=== PATIENT | female | born 1995 | race Caucasian/White ===

== ENCOUNTER 2017-10-27 13:36 | Inpatient (IN) | payer MEDICAID ==
[2017-10-27 14:43] LABS: RUPTURE FETAL MEMBRANES NEGATIVE (NEGATIVE)
[2017-10-27] MEDS ORDERED: LIDOCAINE 1% (MPF) 30 ML INJ INJ ×2 (16:00)
[2017-10-27] MEDS ORDERED: CARBOPROST 250 MCG INJ IM ×2 (16:00)
[2017-10-27] MEDS ORDERED: METHYLERGONOVINE 0.2 MG INJ IM ×2 (16:00)
[2017-10-27] MEDS ORDERED: BUTORPHANOL 2 MG INJ IV ×3 (16:00)
[2017-10-27] MEDS ORDERED: OXYTOCIN 30 UNITS/LR 500 ML IV ×5 (16:00)
[2017-10-27] MEDS ORDERED: MISOPROSTOL 200 MCG TAB PR ×2 (16:00)
[2017-10-27 16:51] LABS: ADD MAN DIFF? NO
[2017-10-27 16:54] LABS: WHITE BLOOD COUNT 7.2 10^3/ul (4.8-10.8)
[2017-10-27 16:54] LABS: BASOPHILS % 0.3 % (0.0-2.0); EOSINOPHILS % 0.4 % (0.0-7.0); HEMATOCRIT 37.1 % (37.0-47.0); HEMOGLOBIN 13.4 g/dl (12.0-16.0); LYMPHOCYTES # 2.3 10^3/ul (0.8-2.9); LYMPHOCYTES % 32.5 % (18.0-55.0); MEAN CORPUSCULAR HEMOGLOBIN 35.1 pg (29.0-33.0); MEAN CORPUSCULAR HGB CONC 36.1 g/dl (32.0-37.0); MEAN CORPUSCULAR VOLUME 97.1 fl (72.0-104.0); MEAN PLATELET VOLUME 10.4 fl (7.4-10.4); MONOCYTE # 0.4 10^3/ul (0.3-0.9); MONOCYTES % 6.1 % (0.0-13.0); NEUTROPHIL # 4.3 10^3/ul (1.6-7.5); NEUTROPHILS % 60.1 % (30.0-74.0); PLATELET COUNT 194 10^3/UL (140-415); RED BLOOD COUNT 3.82 10^6/ul (4.20-5.40); RED CELL DISTRIBUTION WIDTH 15.1 % (11.5-14.5)
[2017-10-27] MEDS: LACTATED RINGER'S 1,000 ML IV ×3 (17:04→23:58)
[2017-10-27 17:18] LABS: INR 0.87; PROTIME 11.9 Sec (11.9-14.9); PT RATIO 0.9
[2017-10-27 17:19] LABS: PARTIAL THROMBOPLASTIN TIME 29.4 Sec (25.0-35.0)
[2017-10-27 17:42] LABS: HEPATITIS B SURFACE ANTIGEN NEGATIVE (NEGATIVE)
[2017-10-27] MEDS: AMPICILLIN 2 GM/NS (PMX) 100 ML IV (18:07)
[2017-10-27] MEDS: DINOPROSTONE 10 MG VAG SUPP VAG (18:14)
[2017-10-27] MEDS ORDERED: MINERAL OIL LIGHT 10 ML VIAL TOP (20:00)
[2017-10-27] MEDS ORDERED: AMPICILLIN 1 GM/NS (PMX) 50 ML IV (20:00)
[2017-10-27 21:41] LABS: RAPID PLASMA REAGIN NONREACTIVE (NR)
[2017-10-27] MEDS: AMPICILLIN 1 GM/NS (PMX) 50 ML IV (22:25)
[2017-10-27] MEDS ORDERED: FENTAnyl 2MCG/ML-ROPIV 0.2% 100 ML (22:46)
[2017-10-28] MEDS ORDERED: NALOXONE (0.4 MG/ML) INJ IV
[2017-10-28] MEDS: AMPICILLIN 1 GM/NS (PMX) 50 ML IV ×6 (02:03→22:39)
[2017-10-28] MEDS: FENTAnyl 2MCG/ML-ROPIV 0.2% 100 ML BAG EPI ×4 (04:57→23:47)
[2017-10-28] MEDS: LACTATED RINGER'S 1,000 ML IV ×4 (06:22→23:42)
[2017-10-28 11:07] LABS: ADD MAN DIFF? NO
[2017-10-28 11:19] LABS: BASOPHILS % 0.2 % (0.0-2.0); HEMATOCRIT 35.1 % (37.0-47.0); HEMOGLOBIN 12.9 g/dl (12.0-16.0); LYMPHOCYTES % 8.4 % (18.0-55.0); MEAN CORPUSCULAR HEMOGLOBIN 35.5 pg (29.0-33.0); MEAN CORPUSCULAR HGB CONC 36.8 g/dl (32.0-37.0); MEAN CORPUSCULAR VOLUME 96.7 fl (72.0-104.0); MEAN PLATELET VOLUME 10.5 fl (7.4-10.4); MONOCYTE # 0.5 10^3/ul (0.3-0.9); NEUTROPHIL # 9.9 10^3/ul (1.6-7.5); NEUTROPHILS % 86.8 % (30.0-74.0); PLATELET COUNT 175 10^3/UL (140-415); RED BLOOD COUNT 3.63 10^6/ul (4.20-5.40)
[2017-10-28 11:19] LABS: WHITE BLOOD COUNT 11.4 10^3/ul (4.8-10.8)
[2017-10-28 11:30] LABS: INR 0.89; PROTIME 12.1 Sec (11.9-14.9); PT RATIO 0.9
[2017-10-28 11:31] LABS: ALANINE AMINOTRANSFERASE 28 IU/L (13-69); ALBUMIN 3.6 g/dl (3.3-4.9); ALBUMIN/GLOBULIN RATIO 1.16; ALKALINE PHOSPHATASE 260 IU/L (42-121); ANION GAP 17 (8-16); ASPARTATE AMINO TRANSFERASE 29 IU/L (15-46); BILIRUBIN,INDIRECT 0.1 mg/dl (0-1.1); BILIRUBIN,TOTAL 0.1 mg/dl (0.2-1.3); BLOOD UREA NITROGEN 10 mg/dl (7-20); CALCIUM 9.3 mg/dl (8.4-10.2); CARBON DIOXIDE 23 mmol/L (21-31); CHLORIDE 107 mmol/L (97-110); CREATININE 0.72 mg/dl (0.44-1.00); GLUCOSE 92 mg/dl (70-220); PARTIAL THROMBOPLASTIN TIME 29.2 Sec (25.0-35.0); POTASSIUM 4.4 mmol/L (3.5-5.1); SODIUM 143 mmol/L (135-144); TOTAL PROTEIN 6.7 g/dl (6.1-8.1); URIC ACID 6.5 mg/dl (3.1-7.9)
[2017-10-28 12:18] LABS: ADD UMIC YES; UR ASCORBIC ACID NEGATIVE (NEGATIVE); UR BILIRUBIN (Dip) NEGATIVE (NEGATIVE); UR BLOOD (Dip) 2+ mg/dL (NEGATIVE); UR CLARITY CLEAR (CLEAR); UR COLOR STRAW (YELLOW); UR GLUCOSE (Dip) NEGATIVE (NEGATIVE); UR KETONES (Dip) 1+ mg/dL (NEGATIVE); UR LEUKOCYTE ESTERASE (Dip) NEGATIVE Leu/ul (NEGATIVE); UR NITRITE (Dip) NEGATIVE (NEGATIVE); UR RBC 5 /HPF (0-5); UR SPECIFIC GRAVITY (Dip) 1.006 (1.003-1.030); UR TOTAL PROTEIN (Dip) NEGATIVE (NEGATIVE); UR UROBILINOGEN (Dip) NEGATIVE (NEGATIVE); UR WBC 1 /HPF (0-5)
[2017-10-28] MEDS ORDERED: LIDOCAINE 1.5%/EPI MPF (SDV) 30 ML VIAL (13:52)
[2017-10-28] MEDS ORDERED: OXYTOCIN 30 UNITS/LR 500 ML IV (14:00)
[2017-10-28] MEDS: OXYTOCIN 30 UNITS/LR 500 ML IV (14:17)
[2017-10-28] MEDS ORDERED: IBUPROFEN 600 MG TAB PO (21:00)
[2017-10-29] MEDS: AMPICILLIN 1 GM/NS (PMX) 50 ML IV (01:42)
[2017-10-29] MEDS: MINERAL OIL LIGHT 10 ML VIAL TOP (03:51)
[2017-10-29] MEDS ORDERED: CA GLUCONATE (GM) 10% 10ML INJ IV (04:00)
[2017-10-29] MEDS: OXYTOCIN 30 UNITS/LR 500 ML IV ×2 (04:22→13:19)
[2017-10-29] MEDS: MAGNESIUM SULFATE 4 GM/100 ML 100 ML IV (04:22)
[2017-10-29] MEDS: MAGNESIUM SULFATE 20 GM/500 ML 500 ML IV ×2 (05:07→14:31)
[2017-10-29] MEDS ORDERED: METHYLERGONOVINE 0.2 MG INJ IM (07:00)
[2017-10-29] MEDS ORDERED: OXYCODONE/ASPIRIN (4.88/325) TAB PO (07:00)
[2017-10-29] MEDS ORDERED: ZOLPIDEM 5 MG TAB PO (07:00)
[2017-10-29] MEDS ORDERED: MISOPROSTOL 200 MCG TAB PR (07:00)
[2017-10-29] MEDS ORDERED: CARBOPROST 250 MCG INJ IM (07:00)
[2017-10-29] MEDS: IBUPROFEN 600 MG TAB PO ×3 (12:00→18:00)
[2017-10-29 12:44] LABS: MAGNESIUM 5.9 mg/dl (1.7-2.5)
[2017-10-29] MEDS: SENNA/DOCUSATE NA (8.6MG/50MG) TAB PO ×2 (13:16→20:41)
[2017-10-29 18:49] LABS: MAGNESIUM 6.5 mg/dl (1.7-2.5)
[2017-10-29] MEDS: OXYCODONE/ASPIRIN (4.88/325) TAB PO (21:35)
[2017-10-29] MEDS: LANOLIN 7 GM TUBE TOP (22:36)
[2017-10-29] MEDS: WITCH HAZEL/GLYCERIN PAD PR (22:37)
[2017-10-29] MEDS: BENZOCAINE 20% 56 ML SPRAY TOP (22:37)
[2017-10-30] MEDS: IBUPROFEN 600 MG TAB PO ×5 (00:03→23:59)
[2017-10-30] MEDS: LACTATED RINGER'S 1,000 ML IV (00:05)
[2017-10-30 00:14] LABS: MAGNESIUM 5.2 mg/dl (1.7-2.5)
[2017-10-30] MEDS: SENNA/DOCUSATE NA (8.6MG/50MG) TAB PO ×2 (09:04→21:47)
[2017-10-30 09:37] LABS: ADD MAN DIFF? NO
[2017-10-30 10:12] LABS: WHITE BLOOD COUNT 12.5 10^3/ul (4.8-10.8)
[2017-10-30 10:12] LABS: BASOPHILS % 0.2 % (0.0-2.0); EOSINOPHILS # 0.1 10^3/ul (0.0-0.5); EOSINOPHILS % 0.5 % (0.0-7.0); HEMATOCRIT 33.4 % (37.0-47.0); HEMOGLOBIN 12.1 g/dl (12.0-16.0); LYMPHOCYTES # 2.3 10^3/ul (0.8-2.9); LYMPHOCYTES % 18.3 % (18.0-55.0); MEAN CORPUSCULAR HEMOGLOBIN 35.4 pg (29.0-33.0); MEAN CORPUSCULAR HGB CONC 36.2 g/dl (32.0-37.0); MEAN CORPUSCULAR VOLUME 97.7 fl (72.0-104.0); MEAN PLATELET VOLUME 10.1 fl (7.4-10.4); MONOCYTE # 0.6 10^3/ul (0.3-0.9); MONOCYTES % 5.1 % (0.0-13.0); NEUTROPHIL # 9.4 10^3/ul (1.6-7.5); NEUTROPHILS % 75.3 % (30.0-74.0); PLATELET COUNT 179 10^3/UL (140-415); RED BLOOD COUNT 3.42 10^6/ul (4.20-5.40)
[2017-10-30] MEDS ORDERED: VITAMIN A & D 5 GM OINT PACKET TOP (21:48)
[2017-10-31] MEDS: IBUPROFEN 600 MG TAB PO ×3 (06:23→17:24)
[2017-10-31] MEDS: SENNA/DOCUSATE NA (8.6MG/50MG) TAB PO (10:46)
[2017-10-31] MEDS: WITCH HAZEL/GLYCERIN PAD PR (10:46)
[2017-10-31] MEDS: DIPHTH/TET/ACEL PERTUSS (ADULT) 0.5 ML VIAL IM* (11:28)
[2017-10-31] MEDS: INFLUENZA VIRUS VACCINE 0.5 ML SYG IM* (11:29)
== END 2017-10-31 18:22 | disposition home or self-care (01) | DRG 775 ==
LOC: OBT 13:36 → PP1 10-29 06:06 → L-D 13:36 → OBT 15:00 → L-D 15:00 → OBT 15:00 → L-D 15:00
PROVIDERS: Obstetrics & Gynecology
PROC: 10E0XZZ Delivery of Products of Conception, External Approach (ICD-10-PCS; principal; 2017-10-31)
PROC: 0KQM0ZZ Repair Perineum Muscle, Open Approach (ICD-10-PCS; 2017-10-31)
DX: O70.1 Second degree perineal laceration during delivery (principal); Z37.0 Single live birth; Z3A.39 39 weeks gestation of pregnancy
CPT/HCPCS: 62319; 76815; 76818; 80053; 81001; 83735; 84112; 84560; 85025; 85610; 85730; 86592; 86850; 86900; 86901; 87340; 90686; 90715; 99464